=== PATIENT | female | born 1960 | race Two or more races ===

== ENCOUNTER 2020-10-06 09:06 | Inpatient (IN) | payer MEDICAID, OTHER ==
[~2020-10-06] VITALS: Ht 167.6 cm; Wt 82.8 kg
[2020-10-06] MEDS ORDERED: RISP1TAB48 PO (10:09)
[2020-10-06] MEDS ORDERED: BENZ0.5T44 PO (10:09)
[2020-10-06] MEDS ORDERED: DULO-8 PO (10:09)
[2020-10-06] MEDS ORDERED: PALI9TAB15 PO (10:09)
[2020-10-06] MEDS ORDERED: TOPI100T37 PO (10:09)
[2020-10-06 10:31] LABS: BASOPHILS % (AUTO) 1.2 % (0.0-2.0); EOSINOPHILS % (AUTO) 2.5 % (1.0-6.0); HEMATOCRIT 35.8 % (36-46); LYMPHOCYTES # (AUTO) 1.3 K/uL (1.0-4.8); LYMPHOCYTES % (AUTO) 17.8 % (22.0-44.0); MEAN CORPUSCULAR HEMOGLOBIN 20.6 pg (26.0-34.0); MEAN CORPUSCULAR HGB CONC 30.7 G/dL (31.0-37.0); MEAN CORPUSCULAR VOLUME 67 fL (80-100); MONOCYTES # (AUTO) 0.7 K/uL (0.1-1.0); MONOCYTES % (AUTO) 9.5 % (2.0-9.0); NEUTROPHILS # (AUTO) 4.8 K/uL (1.8-7.7); PLATELET COUNT (AUTO) 221 K/uL (150-450); RED BLOOD CELL COUNT(AUTO) 5.33 MIL/uL (4.00-5.20); RED CELL DISTRIBUTION WIDTH 15.8 % (11.5-14.5)
[2020-10-06 10:36] LABS: ANION GAP 6 mmol/L (8-16); CALCIUM, TOTAL 8.7 mg/dL (8.8-10.5); CARBON DIOXIDE 24 mmol/L (22-29); CHLORIDE 107 mmol/L (98-107); CREATININE 0.96 mg/dL (0.60-1.30); GLOMERULAR FILTR. RATE CALC 59 mL/min (>60); GLUCOSE,RANDOM 114 mg/dL (70-110); POTASSIUM 3.9 mmol/L (3.5-5.1); SODIUM SERUM 137 mmol/L (136-145); UREA NITROGEN, BLOOD 26 mg/dL (7-18)
[2020-10-06 10:41] LABS: ALANINE AMINOTRANSFERASE 50 U/L (12-78); ALBUMIN 3.2 g/dL (3.4-5.0); ALKALINE PHOSPHATASE 94 U/L (46-116); ASPARTATE AMINOTRANSFERASE 23 U/L (15-37); BILIRUBIN,TOTAL 0.2 mg/dL (0.1-1.0); TOTAL PROTEIN, SERUM 6.7 g/dL (6.4-8.2)
[2020-10-06 11:14] LABS: COVID AG,FIA SOURCE NASOPHARYNGEAL
[2020-10-06 13:59] LABS: AMPHET/METH SCREEN,URINE NEGATIVE (NEGATIVE); BARBITURATE SCREEN, URINE NEGATIVE (NEGATIVE); BENZODIAZEPINES SCREEN,URINE NEGATIVE (NEGATIVE); CANNABINOID SCREEN,URINE NEGATIVE (NEGATIVE); COCAINE SCREEN,URINE NEGATIVE (NEGATIVE); METHADONE SCREEN, URINE NEGATIVE (NEGATIVE); OPIATE SCREEN,URINE NEGATIVE (NEGATIVE)
[2020-10-06 14:00] LABS: PHENCYCLIDINE SCREEN,URINE NEGATIVE (NEGATIVE)
[2020-10-06] MEDS ORDERED: ZOLPIDEM TARTRATE 10 MG TABLET PO PRN (14:45)
[2020-10-06] MEDS ORDERED: HALOPERIDOL 5 MG TABLET PO PRN (14:45)
[2020-10-06 16:24] VITALS: BP 136/76
[2020-10-07] VITALS: BP 130/53
[2020-10-07] MEDS ORDERED: NICOTINE 14 MG/24 HOUR PATCH TD PRN (07:30)
[2020-10-07] MEDS ORDERED: ALBUTEROL SULFATE HFA 90 MCG/PUFF 8 GM INHALER IH PRN (07:30)
[2020-10-07] MEDS ORDERED: ACETAMINOPHEN 325 MG TABLET PO PRN (07:30)
[2020-10-07] MEDS ORDERED: IBUPROFEN 400 MG TABLET PO PRN (07:30)
[2020-10-07] MEDS ORDERED: GuaiFENesin/D-METHORPHAN [SUGAR-FREE] 200-20MG/10 ML SYRUP UDCUP PO PRN (07:30)
[2020-10-07] MEDS ORDERED: MAG HYDROX/AL HYDROX/SIMETH ES 30 ML SUSPENSION UDCUP PO PRN (07:30)
[2020-10-07] MEDS ORDERED: ONDANSETRON HCL 4 MG TABLET PO PRN (07:30)
[2020-10-07] MEDS ORDERED: DOCUSATE SODIUM 100 MG CAPSULE PO PRN (07:30)
[2020-10-07] MEDS ORDERED: MAGNESIUM HYDROXIDE SUSPENSION 30 ML UDCUP PO PRN (07:30)
[2020-10-07] MEDS ORDERED: LOPERAMIDE HCL 2 MG CAPSULE PO PRN (07:30)
[2020-10-07] MEDS ORDERED: CloNIDine HCL 0.1 MG TABLET PO PRN (07:30)
[2020-10-07] MEDS ORDERED: PETROLATUM,WHITE 28 GM JELLY TP PRN (07:30)
[2020-10-07 08:06] VITALS: BP 134/85
[2020-10-07 08:46] LABS: EOSINOPHILS % (AUTO) 2.4 % (1.0-6.0); HEMOGLOBIN 11.4 g/dL (12.0-16.0); LYMPHOCYTES # (AUTO) 1.2 K/uL (1.0-4.8); LYMPHOCYTES % (AUTO) 22.3 % (22.0-44.0); MEAN CORPUSCULAR HEMOGLOBIN 20.3 pg (26.0-34.0); MEAN CORPUSCULAR VOLUME 68 fL (80-100); MONOCYTES # (AUTO) 0.5 K/uL (0.1-1.0); MONOCYTES % (AUTO) 9.3 % (2.0-9.0); NEUTROPHILS # (AUTO) 3.6 K/uL (1.8-7.7); PLATELET COUNT (AUTO) 245 K/uL (150-450); RED CELL DISTRIBUTION WIDTH 16.1 % (11.5-14.5)
[2020-10-07 09:19] LABS: ALANINE AMINOTRANSFERASE 49 U/L (12-78); ALBUMIN 3.2 g/dL (3.4-5.0); ALKALINE PHOSPHATASE 91 U/L (46-116); ANION GAP 6 mmol/L (8-16); ASPARTATE AMINOTRANSFERASE 24 U/L (15-37); BILIRUBIN,TOTAL 0.2 mg/dL (0.1-1.0); CALCIUM, TOTAL 8.6 mg/dL (8.8-10.5); CARBON DIOXIDE 24 mmol/L (22-29); CHLORIDE 106 mmol/L (98-107); CHOLESTEROL 194 mg/dL (131-200); CREATININE 0.89 mg/dL (0.60-1.30); GLOMERULAR FILTR. RATE CALC > 60 mL/min (>60); GLUCOSE,RANDOM 85 mg/dL (70-110); HDL CHOLESTEROL 64 mg/dL (40-60); LDL CHOL (CALC.) 95 mg/dL (0-130); POTASSIUM 4.1 mmol/L (3.5-5.1); SODIUM SERUM 136 mmol/L (136-145); TRIGLYCERIDES 174 mg/dL (15-150); UREA NITROGEN, BLOOD 26 mg/dL (7-18)
[2020-10-07 10:26] LABS: THYROID STIMULATING HORMONE 1.01 uIU/mL (0.36-3.74)
[2020-10-07] MEDS: RisperiDONE 2 MG TABLET PO SCH ×2 (13:16→20:44)
[2020-10-07] MEDS: DULoxetine HCL 60 MG CAPSULE PO SCH (13:16)
[2020-10-07] MEDS: BENZTROPINE MESYLATE 0.5 MG TABLET PO SCH ×2 (13:16→20:44)
[2020-10-07 16:15] VITALS: BP 115/74
[2020-10-07] MEDS: TOPIRAMATE 100 MG TABLET PO SCH (20:45)
[2020-10-08 00:10] VITALS: BP 117/64
[2020-10-08] MEDS: DULoxetine HCL 60 MG CAPSULE PO SCH (08:51)
[2020-10-08] MEDS: BENZTROPINE MESYLATE 0.5 MG TABLET PO SCH ×2 (08:51→20:20)
[2020-10-08] MEDS: RisperiDONE 2 MG TABLET PO SCH ×2 (08:51→20:20)
[2020-10-08 13:12] VITALS: BP 125/68
[2020-10-08 16:10] VITALS: BP 131/75
[2020-10-08] MEDS: TOPIRAMATE 100 MG TABLET PO SCH (20:20)
[2020-10-09 00:15] VITALS: BP 135/76
[2020-10-09 08:02] VITALS: BP 119/70
[2020-10-09] MEDS: RisperiDONE 2 MG TABLET PO SCH ×2 (09:29→20:06)
[2020-10-09] MEDS: DULoxetine HCL 60 MG CAPSULE PO SCH (09:29)
[2020-10-09] MEDS: BENZTROPINE MESYLATE 0.5 MG TABLET PO SCH ×2 (09:29→20:05)
[2020-10-09 16:07] VITALS: BP 131/74
[2020-10-09] MEDS: LORazepam 2 MG TABLET PO PRN (16:21)
[2020-10-09] MEDS: TOPIRAMATE 100 MG TABLET PO SCH (20:06)
[2020-10-10 01:51] VITALS: BP 127/73
[2020-10-10 08:36] VITALS: BP 129/72
[2020-10-10] MEDS: DULoxetine HCL 60 MG CAPSULE PO SCH (08:38)
[2020-10-10] MEDS: RisperiDONE 2 MG TABLET PO SCH ×2 (08:38→20:38)
[2020-10-10] MEDS: BENZTROPINE MESYLATE 0.5 MG TABLET PO SCH ×2 (08:38→20:38)
[2020-10-10 16:07] VITALS: BP 141/75
[2020-10-10] MEDS: TOPIRAMATE 100 MG TABLET PO SCH (20:39)
[2020-10-11 01:13] VITALS: BP 128/70
[2020-10-11 07:40] LABS: COVID AG,FIA SOURCE NASOPHARYNGEAL
[2020-10-11 08:03] VITALS: BP 115/65
[2020-10-11] MEDS: DULoxetine HCL 60 MG CAPSULE PO SCH (09:15)
[2020-10-11] MEDS: RisperiDONE 2 MG TABLET PO SCH ×2 (09:15→20:21)
[2020-10-11] MEDS: BENZTROPINE MESYLATE 0.5 MG TABLET PO SCH ×2 (09:15→20:20)
[2020-10-11] MEDS: LORazepam 2 MG TABLET PO PRN (09:19)
[2020-10-11 16:00] VITALS: BP 135/79
[2020-10-11] MEDS: TOPIRAMATE 100 MG TABLET PO SCH (20:21)
[2020-10-12 01:10] VITALS: BP 131/73
[2020-10-12 08:07] VITALS: BP 124/65
[2020-10-12] MEDS: BENZTROPINE MESYLATE 0.5 MG TABLET PO SCH ×2 (08:11→20:30)
[2020-10-12] MEDS: DULoxetine HCL 60 MG CAPSULE PO SCH (08:11)
[2020-10-12] MEDS: RisperiDONE 2 MG TABLET PO SCH ×2 (08:12→20:30)
[2020-10-12 16:05] VITALS: BP 141/81
[2020-10-12] MEDS: TOPIRAMATE 100 MG TABLET PO SCH (20:30)
[2020-10-13 01:07] VITALS: BP 128/79
[2020-10-13] MEDS: MULTIVITAMINS WITH MINERALS, THERAPEUTIC TABLET PO SCH (08:12)
[2020-10-13] MEDS: DULoxetine HCL 60 MG CAPSULE PO SCH (08:12)
[2020-10-13] MEDS: BENZTROPINE MESYLATE 0.5 MG TABLET PO SCH ×2 (08:12→20:02)
[2020-10-13] MEDS: RisperiDONE 2 MG TABLET PO SCH ×2 (08:12→20:02)
[2020-10-13 08:22] VITALS: BP 114/76
[2020-10-13 16:07] VITALS: BP 100/62
[2020-10-13] MEDS: TOPIRAMATE 100 MG TABLET PO SCH (20:02)
[2020-10-14 00:47] VITALS: BP 127/74
[2020-10-14 08:28] VITALS: BP 124/61
[2020-10-14] MEDS: DULoxetine HCL 60 MG CAPSULE PO SCH (09:25)
[2020-10-14] MEDS: RisperiDONE 2 MG TABLET PO SCH ×2 (09:25→20:39)
[2020-10-14] MEDS: BENZTROPINE MESYLATE 0.5 MG TABLET PO SCH ×2 (09:25→20:39)
[2020-10-14] MEDS: MULTIVITAMINS WITH MINERALS, THERAPEUTIC TABLET PO SCH (09:25)
[2020-10-14 16:09] VITALS: BP 139/70
[2020-10-14] MEDS: TOPIRAMATE 100 MG TABLET PO SCH (20:39)
[2020-10-15 00:55] VITALS: BP 130/73
[2020-10-15 08:12] VITALS: BP 123/75
[2020-10-15] MEDS: RisperiDONE 2 MG TABLET PO SCH ×2 (08:27→20:28)
[2020-10-15] MEDS: BENZTROPINE MESYLATE 0.5 MG TABLET PO SCH ×2 (08:27→20:28)
[2020-10-15] MEDS: DULoxetine HCL 60 MG CAPSULE PO SCH (08:27)
[2020-10-15] MEDS: MULTIVITAMINS WITH MINERALS, THERAPEUTIC TABLET PO SCH (08:27)
[2020-10-15 16:09] VITALS: BP 110/79
[2020-10-15] MEDS: TOPIRAMATE 100 MG TABLET PO SCH (20:28)
[2020-10-16 00:22] VITALS: BP 128/74
[2020-10-16 08:08] VITALS: BP 130/75
[2020-10-16] MEDS: RisperiDONE 2 MG TABLET PO SCH ×2 (09:04→21:00)
[2020-10-16] MEDS: DULoxetine HCL 60 MG CAPSULE PO SCH (09:04)
[2020-10-16] MEDS: BENZTROPINE MESYLATE 0.5 MG TABLET PO SCH ×2 (09:04→21:00)
[2020-10-16] MEDS: MULTIVITAMINS WITH MINERALS, THERAPEUTIC TABLET PO SCH (09:04)
[2020-10-16 16:18] VITALS: BP 150/91
[2020-10-16] MEDS: TOPIRAMATE 100 MG TABLET PO SCH (21:00)
[2020-10-17 01:28] VITALS: BP 127/72
[2020-10-17 08:10] VITALS: BP 115/65
[2020-10-17] MEDS: DULoxetine HCL 60 MG CAPSULE PO SCH (08:22)
[2020-10-17] MEDS: BENZTROPINE MESYLATE 0.5 MG TABLET PO SCH ×2 (08:22→20:27)
[2020-10-17] MEDS: RisperiDONE 2 MG TABLET PO SCH ×2 (08:22→20:28)
[2020-10-17] MEDS: MULTIVITAMINS WITH MINERALS, THERAPEUTIC TABLET PO SCH (08:22)
[2020-10-17 16:18] VITALS: BP 132/80
[2020-10-17] MEDS: TOPIRAMATE 100 MG TABLET PO SCH (20:27)
[2020-10-18 00:10] VITALS: BP 119/80
[2020-10-18 08:07] VITALS: BP 115/77
[2020-10-18] MEDS: DULoxetine HCL 60 MG CAPSULE PO SCH (08:42)
[2020-10-18] MEDS: BENZTROPINE MESYLATE 0.5 MG TABLET PO SCH ×2 (08:42→20:45)
[2020-10-18] MEDS: RisperiDONE 2 MG TABLET PO SCH ×2 (08:42→20:45)
[2020-10-18] MEDS: MULTIVITAMINS WITH MINERALS, THERAPEUTIC TABLET PO SCH (08:42)
[2020-10-18 16:22] VITALS: BP 138/80
[2020-10-18] MEDS: TOPIRAMATE 100 MG TABLET PO SCH (20:45)
[2020-10-19 01:33] VITALS: BP 128/77
[2020-10-19 07:40] LABS: COVID AG,FIA SOURCE NASOPHARYNGEAL
[2020-10-19] MEDS: RisperiDONE 2 MG TABLET PO SCH ×2 (08:05→20:10)
[2020-10-19] MEDS: BENZTROPINE MESYLATE 0.5 MG TABLET PO SCH ×2 (08:05→20:10)
[2020-10-19] MEDS: DULoxetine HCL 60 MG CAPSULE PO SCH (08:05)
[2020-10-19] MEDS: MULTIVITAMINS WITH MINERALS, THERAPEUTIC TABLET PO SCH (08:05)
[2020-10-19 08:20] VITALS: BP 118/68
[2020-10-19 16:13] VITALS: BP 135/60
[2020-10-19] MEDS: TOPIRAMATE 100 MG TABLET PO SCH (20:10)
[2020-10-20 00:21] VITALS: BP 132/68
[2020-10-20 07:53] LABS: CHOL/HDL RATIO 3.2 (3.9-5.7)
[2020-10-20] MEDS: BENZTROPINE MESYLATE 0.5 MG TABLET PO SCH ×2 (08:05→20:06)
[2020-10-20] MEDS: DULoxetine HCL 60 MG CAPSULE PO SCH (08:05)
[2020-10-20] MEDS: MULTIVITAMINS WITH MINERALS, THERAPEUTIC TABLET PO SCH (08:05)
[2020-10-20] MEDS: RisperiDONE 2 MG TABLET PO SCH ×2 (08:06→20:05)
[2020-10-20 08:16] VITALS: BP 120/73
[2020-10-20] MEDS ORDERED: BENZ0.5T44 PO (14:12)
[2020-10-20] MEDS ORDERED: RISP2TAB45 PO (14:14)
[2020-10-20] MEDS ORDERED: TOPI100T37 PO (14:15)
[2020-10-20 16:09] VITALS: BP 127/66
[2020-10-20] MEDS: TOPIRAMATE 100 MG TABLET PO SCH (20:06)
[2020-10-21 00:42] VITALS: BP 125/68
[2020-10-21 08:05] VITALS: BP 116/60
[2020-10-21] MEDS: BENZTROPINE MESYLATE 0.5 MG TABLET PO SCH (08:42)
[2020-10-21] MEDS: DULoxetine HCL 60 MG CAPSULE PO SCH (08:42)
[2020-10-21] MEDS: RisperiDONE 2 MG TABLET PO SCH (08:43)
[2020-10-21] MEDS: MULTIVITAMINS WITH MINERALS, THERAPEUTIC TABLET PO SCH (08:43)
[2020-10-21 16:31] VITALS: BP 127/80
== END 2020-10-21 16:15 | disposition home or self-care (01) | DRG 750 ==
LOC: EMS 09:18 → B2S 13:43
PROVIDERS: ADMIT Psychiatry & Neurology Child & Adolescent Psychiatry; ATTEND Psychiatry & Neurology Child & Adolescent Psychiatry
DX: F25.1 Schizoaffective disorder, depressive type (principal); N17.9 Acute kidney failure, unspecified; E86.0 Dehydration; Z59.0 Homelessness; D64.9 Anemia, unspecified; F31.9 Bipolar disorder, unspecified; E03.8 Other specified hypothyroidism; F17.210 Nicotine dependence, cigarettes, uncomplicated; Z20.822 Contact with and (suspected) exposure to COVID-19; Z91.5 Personal history of self-harm; Z88.8 Allergy status to other drugs, medicaments and biological substances; Z85.3 Personal history of malignant neoplasm of breast; Z90.710 Acquired absence of both cervix and uterus
CPT/HCPCS: 80053; 80061; 84439; 84443; 85025; 99285; G0480